=== PATIENT | male | born 1935 | race Caucasian/White ===

== ENCOUNTER 2022-06-15 14:42 | Inpatient (IN) | payer OTHER ==
[~2022-06-15] VITALS: Ht 182.9 cm; Wt 74.8 kg
--- NOTE | 2022-06-15 15:00 | NUR ---
sierra, altered mentation since this morning. On room air, breathing evenly and unlabored. Kept comfortable, will continue to monitor accordingly.
[2022-06-15] MEDS ORDERED: VANCOMYCIN 1 GM in IV D5W 250 ML IV ONE (15:30)
[2022-06-15] MEDS ORDERED: AZTREONAM 2 G in IV NS 0.9% 100 ML IV ONE (15:30)
[2022-06-15] MEDS ORDERED: IV NS 0.9% 1,000 ML BAG IV ONE (15:30)
[2022-06-15] MEDS ORDERED: ACETAMINOPHEN 650 MG/SUPP.RECT RC ONE (15:45)
[2022-06-15] MEDS ORDERED: MIDO10TA PO (15:55)
[2022-06-15] MEDS ORDERED: SENN1TAB77 PO (15:55)
[2022-06-15] MEDS ORDERED: FAMO20TA8 PO (15:55)
[2022-06-15] MEDS ORDERED: POLY17PO4 PO (15:55)
[2022-06-15] MEDS ORDERED: MAG30ORA PO (15:55)
[2022-06-15] MEDS ORDERED: SODI100037 PO (15:55)
[2022-06-15] MEDS ORDERED: FLUD0.1T PO (15:55)
[2022-06-15] MEDS ORDERED: MULT-439 PO (15:55)
[2022-06-15] MEDS ORDERED: FERR143T PO (15:55)
[2022-06-15] MEDS ORDERED: ASCO500C17 PO (15:55)
[2022-06-15] MEDS ORDERED: POTA10CA43 PO (15:55)
[2022-06-15] MEDS ORDERED: DOCU-141 PO (15:55)
[2022-06-15] MEDS ORDERED: LATA2.5D15 EACHEYE (15:55)
[2022-06-15] MEDS ORDERED: PRAM0.253 PO (15:55)
[2022-06-15] MEDS ORDERED: ATOR40TA PO (15:55)
[2022-06-15] MEDS ORDERED: CLOP75TA15 PO (15:55)
[2022-06-15] MEDS ORDERED: SIME125C81 PO (15:55)
[2022-06-15] MEDS ORDERED: LACTASE ENZYME PO (15:55)
[2022-06-15] MEDS ORDERED: L.AC1CAP6 PO (15:55)
[2022-06-15 16:12] LABS: BASOPHILS % (AUTO) 0.3 % (0.0-2.0); HEMATOCRIT 41 % (39-51); HEMOGLOBIN 13.2 g/dL (13.5-17.5); LYMPHOCYTES # (AUTO) 1.4 K/uL (0.8-4.8); LYMPHOCYTES % (AUTO) 11.6 % (20.0-44.0); MEAN CORPUSCULAR HGB CONC 33 g/dl (31.0-36.0); MEAN CORPUSCULAR VOLUME 86 fL (80-96); MONOCYTES # (AUTO) 0.9 K/uL (0.1-1.30); MONOCYTES % (AUTO) 7.7 % (2.0-12.0); NEUTROPHILS # (AUTO) 9.9 K/uL (1.8-8.9); NEUTROPHILS % (AUTO) 80.4 % (43.0-81.0); PLATELET COUNT (AUTO) 249 K/uL (150-450); RED BLOOD CELL COUNT(AUTO) 4.72 MIL/uL (4.5-6.0); WHITE BLOOD COUNT (AUTO) 12.3 K/uL (4.3-11.0)
[2022-06-15 16:30] LABS: BILIRUBIN,URINE SMALL (NEGATIVE); COLOR,URINE YELLOW (YELLOW); LEUKOCYTE ESTERASE ,URINE NEGATIVE (NEGATIVE); NITRITE, URINE POSITIVE (NEGATIVE); PH,URINE 5.5 (5.0-8.0); PROTEIN,URINE 100 mg/dl (NEGATIVE); UGLUCOSE NEGATIVE (NEGATIVE); UROBILINOGEN,URINE 0.2 EU/dL (0.2)
[2022-06-15 16:49] LABS: CALCIUM, SERUM 9.5 mg/dL (8.5-10.1); CARBON DIOXIDE 25 mmol/L (21-32); CHLORIDE 109 mmol/L (98-107); CREATININE 0.8 mg/dL (0.6-1.3); GLUCOSE 143 mg/dL (74-106); SODIUM SERUM 141 mmol/L (136-145); UREA NITROGEN, BLOOD 19 mg/dL (7-18)
[2022-06-15 17:06] LABS: ALANINE AMINOTRANSFERASE 16 U/L (12-78); ALBUMIN 2.6 g/dL (3.4-5.0); ALKALINE PHOSPHATASE 119 U/L (46-116); ASPARTATE AMINOTRANSFERASE 16 U/L (15-37); BILIRUBIN,DIRECT 0.1 mg/dL (0.0-0.2); BILIRUBIN,TOTAL 0.5 mg/dL (0.2-1.0); TOTAL PROTEIN, SERUM 7.8 g/dL (6.4-8.2)
[2022-06-15 17:46] LABS: RBC,URINE 21-50 /HPF (0-2); WBC,URINE 0-2 /HPF (0-3)
[2022-06-15 17:47] LABS: BACTERIA,URINE 2+ /HPF (None Seen); HYALINE CASTS, URINE Few /LPF (None Seen); MUCUS,URINE Many /LPF (None Seen); SQUAMOUS EPITHELIAL CELL,UR 0-2 /HPF (None Seen)
--- NOTE | 2022-06-15 21:07 | NUR ---
CALLED [facility], PAGED KRYSTIAN
--- NOTE | 2022-06-15 21:56 | NUR ---
BED 114-2
--- NOTE | 2022-06-15 22:08 | NUR ---
REPORT GIVEN TO GRETCHEN
--- NOTE | 2022-06-15 23:00 | NUR ---
SHANK SORTERANTENNA DESIGN ENGINEER NOTE PT TRANSPORTED VIA GURNEY TO UNIT AT THIS TIME. PT FROM HOME ADMITTED TO TELE FROM ER UNDER DR TUTTLE FOR ADMITTING DX OF SEPSIS. PT ABLE TO OPEN EYES AND RESPONSIVE TO LIGHT STIMULUS. DAUGHTER AT BEDSIDE. PT ON O2 @ 2LPM VIA NC, TOLERATING WELL. NO SOB OR S/S OF RESPIRATORY DISTRESS. BREATHING EVEN AND UNLABORED. ON EXTERNAL CARBIDE DIE MAKER READING SR. NO SIGNS OF PAIN SUCH FACILA GRIMACING NOTED. NOTED WITH UPPER BACK WOUND, WOUND CONSULT ORDERED. IV ACCESS RAC 20 GAUGE, INTACT AND PATENT. SKY CATH IN PLACE DRAINING ADAM COLORED URINE WITH SEDIMENTATION. ORIENTED TO UNIT, STAFF, AND ROOM. PT BELONGINGS ACCOUNTED FOR AND BELONGINGS LIST SIGNED. SAFETY PRECAUTIONS IN PLACE. BED IN LOWEST LOCKED POSITION, HOB ELEVATED, SIDE RAILS UP X3, AND CALL LIGHT AND TABLE WITHIN REACH. ALL NEEDS MET AT THIS TIME.
--- NOTE | 2022-06-15 23:03 | NUR ---
PT TRANSPORTED TO [id number] ON CARDIAC PER ACLS IN STABLE CONDITION
[2022-06-15] MEDS ORDERED: HYDROCODONE/APAP 5/325MG TABLET PO PRN (23:30)
[2022-06-15] MEDS ORDERED: ONDANSETRON HCL/PF 4 MG/2 ML VIAL IVP PRN (23:30)
[2022-06-15] MEDS ORDERED: MAGNESIUM HYDROXIDE 30 ML UDC PO PRN (23:30)
[2022-06-15] MEDS ORDERED: ACETAMINOPHEN 325 MG TABLET PO PRN (23:30)
[2022-06-15] MEDS ORDERED: MAG HYDROX/AL HYDROX/SIMETH 30 ML UDC PO PRN (23:30)
[2022-06-15] MEDS ORDERED: IV 1/2NS 1000 ML 1,000 ML IV PRN (23:30)
[2022-06-15] MEDS ORDERED: Z GUARD REMEDY 4 OZ OINT TP PRN (23:30)
[2022-06-15 23:53] VITALS: BP 166/70
[2022-06-16] MEDS: ENOXAPARIN SODIUM 40 MG/0.4 ML DISP.SYRIN SQ SCH ×2 (00:16→22:33)
[2022-06-16] MEDS: MIDODRINE HCL (5MG) 5 MG TABLET PO SCH ×6 (01:00→21:00)
--- NOTE | 2022-06-16 02:20 | NUR ---
0220 Called to patient's room by daughter and stated her father is in distress. Assessed patient immediately and noted patient grimacing, unable to verbalize needs and complaints. Per daughter it might be his gall stones. No signs of respiratory distress noted. O2 saturation noted at 98% on 2L NC. Vital signs as follows: BP 159/79, HR 98. Patient kept saying " I don't know I don't know" when asked by his daughter where he's hurting. Dr. Mccartney was notified of patient's complain, awaiting call back.
[2022-06-16 05:00] VITALS: BP 157/72
[2022-06-16] MEDS ORDERED: AZTREONAM 1 G VIAL IM SCH (05:00)
[2022-06-16] MEDS ORDERED: AZTREONAM 1 G VIAL IV SCH (05:00)
[2022-06-16] MEDS ORDERED: AZTREONAM 2 G in IV NS 0.9% 100 ML IV SCH (05:00)
[2022-06-16] MEDS ORDERED: AZTREONAM 1 G VIAL ONE (05:02)
[2022-06-16 06:29] LABS: BASOPHILS % (AUTO) 0.3 % (0.0-2.0); EOSINOPHILS % (AUTO) 0.4 % (0.0-6.0); HEMATOCRIT 32 % (39-51); HEMOGLOBIN 10.9 g/dL (13.5-17.5); LYMPHOCYTES # (AUTO) 1.2 K/uL (0.8-4.8); LYMPHOCYTES % (AUTO) 10.2 % (20.0-44.0); MEAN CORPUSCULAR HGB CONC 34 g/dl (31.0-36.0); MEAN CORPUSCULAR VOLUME 85 fL (80-96); MONOCYTES # (AUTO) 0.8 K/uL (0.1-1.30); MONOCYTES % (AUTO) 7.2 % (2.0-12.0); NEUTROPHILS # (AUTO) 9.4 K/uL (1.8-8.9); NEUTROPHILS % (AUTO) 81.9 % (43.0-81.0); PLATELET COUNT (AUTO) 203 K/uL (150-450); RED BLOOD CELL COUNT(AUTO) 3.79 MIL/uL (4.5-6.0); WHITE BLOOD COUNT (AUTO) 11.5 K/uL (4.3-11.0)
--- NOTE | 2022-06-16 06:46 | NUR ---
VENEER MATCHER CLOSING NOTE PT RESTING IN BED. PT ABLE TO OPEN EYES AND RESPONSIVE TO LIGHT STIMULUS. DAUGHTER AT BEDSIDE. PT ON O2 @ 2LPM VIA NC, TOLERATING WELL. NO SOB OR S/S OF RESPIRATORY DISTRESS. BREATHING EVEN AND UNLABORED. ON EXTERNAL VENDOR MANAGER READING SR WITH PVCS 91 BPM. NO SIGNS OF PAIN SUCH FACILA GRIMACING NOTED. IV ACCESS RAC 20 GAUGE, INTACT AND PATENT. SKY CATH IN PLACE DRAINING ADAM COLORED URINE WITH SEDIMENTATION. ALL DUE MEDS GIVEN ORDERED. TURNED AND REPOSITIONED Q2H. SAFETY PRECAUTIONS IN PLACE AT ALL TIMES. BED IN LOWEST LOCKED POSITION, HOB ELEVATED, SIDE RAILS UP X3, AND CALL LIGHT AND TABLE WITHIN REACH. ALL NEEDS MET AT THIS TIME AND WILL ENDORSE TO ONCOMING NURSE FOR AYLA.
[2022-06-16 06:49] LABS: CALCIUM, SERUM 8.5 mg/dL (8.5-10.1); CARBON DIOXIDE 26 mmol/L (21-32); CHLORIDE 112 mmol/L (98-107); CREATININE 0.6 mg/dL (0.6-1.3); GLUCOSE 104 mg/dL (74-106); MAGNESIUM 2.5 mg/dL (1.8-2.4); PHOSPHORUS 2.6 mg/dL (2.5-4.9); POTASSIUM 3.6 mmol/L (3.5-5.1); SODIUM SERUM 144 mmol/L (136-145); UREA NITROGEN, BLOOD 15 mg/dL (7-18)
--- NOTE | 2022-06-16 08:02 | NUR ---
RN NOTE PT RECEIVED ASLEEP IN BED, RESPONSIVE TO STIMULI. ON O2 VIA NC @2L. PT SKY IN PLACE DRAINING WELL. WITH IV ACCESS ON RAC G20 WITH IVF 1/2 NS @ 75/HR. TOLERATING WELL. PT CONT ON NPO STATUS. SAFETY MEASURES FOLLOWED. DAUGHTER IS AT BEDSIDE. WILL CONT TO MONITOR.
[2022-06-16] MEDS: VANCOMYCIN HCL 0.75 GM in IV D5W 250 ML IV SCH ×2 (08:18→19:16)
[2022-06-16 09:00] VITALS: BP 145/70
[2022-06-16] MEDS: FLUDROCORTISONE 0.1 MG TABLET PO SCH ×2 (09:00→17:00)
[2022-06-16] MEDS: ACIDOPHILUS/BULGARICUS 1 EACH TAB.CHEW PO SCH (09:00)
[2022-06-16] MEDS: POLYETHYLENE GLYCOL 3350 17 GM POWD.PACK PO SCH (09:00)
[2022-06-16] MEDS: MAG HYDROX/AL HYDROX/SIMETH 30 ML UDC PO SCH (09:00)
[2022-06-16] MEDS ORDERED: DOCUSATE SODIUM 100 MG CAPSULE PO SCH (09:00)
[2022-06-16] MEDS ORDERED: Medication Not On Formulary EA (Simethicone 125 MG) PO SCH (09:00)
[2022-06-16] MEDS: ASCORBIC ACID 500 MG TABLET PO SCH (09:00)
[2022-06-16] MEDS ORDERED: SODIUM CHLORIDE 1000 MG TABLET PO SCH (09:00)
[2022-06-16] MEDS: MULTIVIT W/MINERALS 1 TAB TABLET PO SCH (09:00)
[2022-06-16] MEDS: CLOPIDOGREL BISULFATE 75 MG TABLET PO SCH (09:00)
[2022-06-16] MEDS ORDERED: SENNOSIDES/DOCUSATE SODIUM 1 UDTAB TABLET PO SCH (09:00)
[2022-06-16] MEDS: PRAMIPEXOLE DI-HCL 0.25 MG TABLET PO SCH ×3 (09:00→17:00)
--- NOTE | 2022-06-16 09:10 | NUR ---
WOUND CARE CONSULT: PT PRESENTS WITH SCAR TO UPPER BACK WHERE MOLE WAS REMOVED PER FAMILY MEMBER. NO ERYTHEMA, DRAINAGE OR TENDERNESS NOTED. PT IS THIN AND BONY. RECOMMENDATIONS MADE FOR SKIN PROTECTION. DISCUSSED WITH NURSING STAFF. MD IN AGREEMENT WITH PLAN OF CARE.
[2022-06-16] MEDS: PANTOPRAZOLE 40 MG VIAL IV SCH (09:56)
[2022-06-16] MEDS: SENNOSIDES 8.6 MG TABLET PO SCH (10:00)
[2022-06-16] MEDS: DOCUSATE SODIUM 100 MG CAPSULE PO SCH (10:00)
[2022-06-16] MEDS: KETOROLAC TROMETHAMINE INJ 30 MG/ML VIAL IV PRN ×2 (10:22→20:18)
[2022-06-16] MEDS: LEVOFLOXACIN 250 MG /D5W 50 ML 250 MG in PREMIX 1 EA IV SCH (12:19)
[2022-06-16 13:00] VITALS: BP 140/70
[2022-06-16] MEDS ORDERED: IV NS 0.9% 250 ML IV ONE (16:30)
[2022-06-16] MEDS ORDERED: IV LR 1000 ML 1,000 ML IV SCH (16:30)
[2022-06-16] MEDS: CLOTRIMAZOLE 1% 15 GM TUBE TP SCH (16:58)
[2022-06-16] MEDS: BISACODYL SUPP (10 MG) 10 MG/SUPP.RECT SUPP.RECT RC PRN (16:59)
[2022-06-16 17:00] VITALS: BP 127/63
[2022-06-16] MEDS: SIMETHICONE 80 MG TAB.CHEW PO SCH (17:00)
[2022-06-16] MEDS: IV LR 1000 ML 1,000 ML IV PRN (17:57)
--- NOTE | 2022-06-16 18:36 | NUR ---
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 READ BACK VERBAL RESULT TO LEANDRO. WILL FAX OVER OFFICIAL RESULTS AND COVID NEG RESULTS ONCE IN.
--- NOTE | 2022-06-16 18:39 | NUR ---
DR. SOO HOWARD NOTIFIED REGARDING PRELIM VERBAL RESULT. PER SOO HOWARD, NOT A HLOC REASON FOR TRANSFER. WILL FOLLOW UP.
[2022-06-16] MEDS ORDERED: JEVITY 1.2 CAL 1,000 ML BOTTLE GT PRN (19:00)
--- NOTE | 2022-06-16 19:20 | NUR ---
RN NOTE RECEIVED PATIENT IN BED, DAUGHTER AT BEDSIDE, AAO X 2, SPEECH IS UNCLEAR BUT IS MORE RESPONSIVE COMPARED DURING ADMISSION PER DAUGHTER. IN NO ACUTE DISTRESS, BREATHING UNLABORED, SATURATION AT 99% ON 2L VIA NC, SR ON THE MONITOR, HR IS 78. IV LINE AT RAC 20G PATENT AND FLUSHING WELL, NO S/S OF INFECTION OR INFILTRATION WITH LR INFUSING AT 100 ML/HR. SKY CATH DRAINING TO A CLEAR, YELLOW OUTPUT. NPO STATUS MAINTAINED. SAFETY MEASURES IN PLACE, BED IS LOCKED AND AT LOWEST POSITION. CALL LIGHT WITHIN REACH OF PATIENT. WILL CONT TO MONITOR AND REASSESS FOR ANY CHANGES.
--- NOTE | 2022-06-16 19:31 | NUR ---
RN NOTE PT RESTING IN BED, RESPONSIVE TO STIMULI. ON O2 VIA NC @2L. PT SKY IN PLACE DRAINING WELL. WITH IV ACCESS ON RAC G20 WITH IVF LR @ 100/HR. TOLERATING WELL. PT CONT ON NPO STATUS. SAFETY MEASURES FOLLOWED.DUE MEDICATIONS GIVEN. DAUGHTER IS AT BEDSIDE. AM PM CARE RENDERED.
[2022-06-16 19:39] LABS: ABG BASE EXCESS -0.6 mmol/L; ABG OXYGEN SATURATION 97.3 % (92.0-98.5); ABG PH 7.406 (7.350-7.450); ABG PO2 98.3 mmHg (75.0-100.0); AaDO2 84.2 mmHg; COHb 0.3 % (0.5-1.5); MetHb 0.2 % (0.0-1.5); O2Hb 96.8 % (94.0-97.0); SITE, ABG Right Radial; VENT MODE, BG Nasal Cannula
--- NOTE | 2022-06-16 19:54 | NUR ---
RN NOTES Spoke to Kika and faxed ultrasound result to her. Tere, warehouse assembly worker aware and will follow up with CM about HLOC. Vikas, primary RN aware.
[2022-06-16 20:00] VITALS: BP 124/61
--- NOTE | 2022-06-16 20:30 | NUR ---
RN NOTES family at bedside; discussed about visiting policy. Per incinerator plant supervisor dtr was allowed to stay last night but was told only for 1 night. Daughter asked for a little bit of time bec she is discussing with the sister about getting a transportation for patient to be transferred to another hospital. Business Practices Supervisor and security made aware 2100 one dtr is left and adamant to stay overnight. Refused NGT to be inserted to the patient unless she talks to incinerator plant supervisor and stay overnight. Business Practices Supervisor will come and talk to her Addendum: 06/16/22 at 2213 by BRAD RAMOS RN 2209 follow up call made to Kika CAMPUZANO; she is still waiting a call back from their doctor and Dr. Mccartney, CHRISTY communications consultant. Will follow up and call me. Yao, warehouse associate aware and she relayed the message to the daughter Addendum: 06/16/22 at 2311 by BRAD RAMOS RN 2239 TATIANNA Anand called back. Per Orlando Miles MD,Dr. Peters, Dr. Mccartney is not aware of [facility] transfer and will consult a vascular surgeon regarding result. Also MD looked at the previous imaging done in [place] for comparison. there is no increase in size therefore, it is not an urgent case for transfer to [facility] and also there is no cardio thoracic surgeon on board. Kika will pass it on to daytime CM and will follow up with the dtrLisa in the morning. Yao , warehouse associate and Vikas, primary RN aware. Spoke to , daughter at bedside and relayed above conversation that I had with their insurance Kika CAMPUZANO.
--- NOTE | 2022-06-16 20:35 | NUR ---
RN NOTE PER PATIENT'S DAUGHTER, HOLD OFF ON NG INSERTION FOR NOW AWAITING POSSIBLE TRANSFER TO [facility]. PATIENT KEPT NPO. UNABLE TO ADMINISTER PO MEDS PATIENT IS LETHARGIC AND FAILED SWALLOW EVALUATION. PO MEDS NON ADMINISTERED.
[2022-06-16] MEDS: LATANOPROST EYE DROP 0.005% 2.5 ML BOTTLE EACHEYE SCH (22:00)
[2022-06-16] MEDS: ATORVASTATIN 40 MG TABLET PO SCH (22:00)
--- NOTE | 2022-06-16 23:27 | NUR ---
RN NOTE ATTEMPTED TO INSERT NASOGASTRIC TUBE PER MD ORDER, HOWEVER, RESISTANCE NOTED ON BOTH NARES. PER PATIENT'S DAUGHTER SABINA, THIS HAS BEEN A PROBLEM IN THE PAST PATIENT HAD A PRIOR NASAL INJURY. SHE REQUESTED IF DOBHOFF TUBE MAYBE USED, HOWEVER, CAN ONLY BE INSERTED BY MD. ASKED IF SHE CAN WAIT TIL AM, SHE IS AMENABLE.
[2022-06-17] VITALS: BP 141/54
[2022-06-17] MEDS ORDERED: KETOROLAC TROMETHAMINE INJ 30 MG/ML VIAL IM ONE (01:00)
[2022-06-17] MEDS: MIDODRINE HCL (5MG) 5 MG TABLET PO SCH ×6 (01:00→20:31)
[2022-06-17] MEDS ORDERED: KETOROLAC TROMETHAMINE INJ 30 MG/ML VIAL IV PRN (01:00)
[2022-06-17 04:00] VITALS: BP 145/61
[2022-06-17] MEDS: IV LR 1000 ML 1,000 ML IV PRN ×2 (04:20→21:07)
--- NOTE | 2022-06-17 04:36 | NUR ---
RN NOTE PT'S DAUGHTER STATED SHE THINKS PT MAYBE IN PAIN HE IS RESTLESS AND DOING BUE AND BLE MOVEMENTS. HOWEVER, TORADOL PRN NOT DUE YET. DR BOLAND WAS NOTIFIED, ORDERS RECEIVED TO DISCONTINUE TORADOL AND START MORPHINE 2 MG Q6 PRN. NOTED CODEINE LISTED UNDER PT'S ALLERGIES, PT'S DAUGHTER SAID PT ONLY HAD DIZZINESS AFTER RECEIVING CODEINE IN THE PAST, NO ANAPHYLACTIC REACTION NOTED. ALSO PT TOLERATED DILAUDID. DR BOLAND WAS MADE AWARE, SHE SAID OK TO GIVE MORPHINE.
[2022-06-17] MEDS: VANCOMYCIN HCL 0.75 GM in IV D5W 250 ML IV SCH (06:18)
[2022-06-17] MEDS: MORPHINE SULFATE INJ 2 MG/ML DISP.SYRIN IV PRN ×3 (06:19→21:07)
[2022-06-17 06:44] LABS: BASOPHILS % (AUTO) 0.3 % (0.0-2.0); HEMATOCRIT 29 % (39-51); HEMOGLOBIN 9.7 g/dL (13.5-17.5); LYMPHOCYTES # (AUTO) 0.9 K/uL (0.8-4.8); LYMPHOCYTES % (AUTO) 12.4 % (20.0-44.0); MEAN CORPUSCULAR HGB CONC 33 g/dl (31.0-36.0); MEAN CORPUSCULAR VOLUME 87 fL (80-96); MONOCYTES # (AUTO) 0.7 K/uL (0.1-1.30); NEUTROPHILS # (AUTO) 5.7 K/uL (1.8-8.9); NEUTROPHILS % (AUTO) 77.3 % (43.0-81.0); PLATELET COUNT (AUTO) 195 K/uL (150-450); RED BLOOD CELL COUNT(AUTO) 3.34 MIL/uL (4.5-6.0); WHITE BLOOD COUNT (AUTO) 7.4 K/uL (4.3-11.0)
--- NOTE | 2022-06-17 07:13 | NUR ---
RN NOTE PT ASLEEP, VS STABLE, NPO STATUS MAINTAINED PENDING SWALLOW EVALUATION AND NG TUBE INSERTION WITH DOBHOFF TUBE PER DTR PATIENT HAS HX OF NASAL INJURY. PT ALSO REQUESTING FLEET ENEMA PT C/O ABDOMINAL PAIN AND THINKS MAYBE FROM CONSTIPATION. (PT HAD BM X 1). ENDORSED TO MERY MEDINA FOR CONTINUATION OF CARE
--- NOTE | 2022-06-17 07:30 | NUR ---
RN OPENING NOTE PT RECEIVED ASLEEP IN BED, RESPONSIVE TO STIMULI. SATTING AT 100% ON 2L NC. PATIENT VOIDING VIA SKY CATHETER PATENT AND DRAINING BELOW THE BLADDER. IV RAC #20G PATENT AND INTACT RUNNING NS 0.9% @75 MLS/HR . DIET CONT ON NPO STATUS NG TUBE WAS ATTEMPTED TO BE INSERTED SEVERAL TIME AND WAS FAILED DUE TO PAST NOSE INJURY. ALL SAFETY FALL PRECAUTIONS IN PLACE BED LOCK ON, BED ALARM ON, SIDE RAILS UP, CALL LIGHT WITHIN REACH. DAUGHTER AT BEDSIDE. WILL CONTINUE TO MONITOR.
[2022-06-17 07:35] LABS: CALCIUM, SERUM 8.6 mg/dL (8.5-10.1); MAGNESIUM 2.5 mg/dL (1.8-2.4); PHOSPHORUS 2.8 mg/dL (2.5-4.9); POTASSIUM 3.4 mmol/L (3.5-5.1)
[2022-06-17 07:47] LABS: CREATININE 0.6 mg/dL (0.6-1.3)
[2022-06-17 08:00] VITALS: BP 127/62
[2022-06-17] MEDS: MAG HYDROX/AL HYDROX/SIMETH 30 ML UDC PO SCH (09:00)
[2022-06-17] MEDS: ASCORBIC ACID 500 MG TABLET PO SCH (09:00)
[2022-06-17] MEDS: PRAMIPEXOLE DI-HCL 0.25 MG TABLET PO SCH ×3 (09:00→17:00)
[2022-06-17] MEDS: SIMETHICONE 80 MG TAB.CHEW PO SCH ×2 (09:00→17:00)
[2022-06-17] MEDS: CLOPIDOGREL BISULFATE 75 MG TABLET PO SCH (09:00)
[2022-06-17] MEDS: FLUDROCORTISONE 0.1 MG TABLET PO SCH ×2 (09:00→17:00)
[2022-06-17] MEDS: FERROUS SULFATE (325 MG) 325 MG/TAB TABLET PO SCH (09:00)
[2022-06-17] MEDS: ACIDOPHILUS/BULGARICUS 1 EACH TAB.CHEW PO SCH (09:00)
[2022-06-17] MEDS: MULTIVIT W/MINERALS 1 TAB TABLET PO SCH (09:00)
[2022-06-17] MEDS: SENNOSIDES 8.6 MG TABLET PO SCH (09:00)
[2022-06-17] MEDS: DOCUSATE SODIUM 100 MG CAPSULE PO SCH (09:00)
[2022-06-17] MEDS: POLYETHYLENE GLYCOL 3350 17 GM POWD.PACK PO SCH (09:00)
[2022-06-17] MEDS: PANTOPRAZOLE 40 MG VIAL IV SCH (09:04)
[2022-06-17] MEDS: CLOTRIMAZOLE 1% 15 GM TUBE TP SCH ×2 (09:09→17:21)
--- NOTE | 2022-06-17 09:36 | NUR ---
RN NOTE PATIENT'S DAUGHTER (SABINA) WAS EDUCATED ABOUT DNR AND DNI. THE DAUGHTER WAS ASKED TO CLARIFY THE CODE STATUS OF HER FATHER. SHE WOULD LIKE TO KEEP HER FATHER'S CURRENT CODE STATUS OF DNR ONLY.
[2022-06-17 12:00] VITALS: BP 149/62
[2022-06-17] MEDS ORDERED: GUAIFENESIN 300 MG/15 ML UDC PO PRN (12:00)
[2022-06-17] MEDS: LEVOFLOXACIN 250 MG /D5W 50 ML 250 MG in PREMIX 1 EA IV SCH (12:34)
[2022-06-17] MEDS: POTASSIUM CL. PREMIX PERIPHER. 50 ML IV SCH ×2 (12:44→15:04)
[2022-06-17] MEDS ORDERED: PNEUMOCOCCAL 23-VAL P-SAC VAC 0.5 ML VIAL SQ ONE (13:00)
--- NOTE | 2022-06-17 14:30 | NUR ---
ms rn patient complain of right lower leg pain 07/24, morphine 2mg iv given, will reevaluate later for effectiveness.
[2022-06-17] MEDS: NA PHOS,M-B/NA PHOS,DI-BA 1 EA ENEMA RC PRN ×2 (15:18→18:21)
[2022-06-17 16:00] VITALS: BP 166/82
--- NOTE | 2022-06-17 19:12 | NUR ---
RN NOTE ALL CARE ENDORSED TO NATIONAL FACILITIES MANAGER NURSE. PATIENT STABLE ALL QUESTIONS ANSWERED.
--- NOTE | 2022-06-17 19:39 | NUR ---
RN OPENING NOTES RECEIVED PT IN BED, ASLEEP, AWAKENS TO VERBAL STIMULI WITH DAUGHTER AND BEDSIDE. AOx2-3, ABLE TO MAKE NEEDS KNOWN. ON RA AND TOLERATING WELL. NO SOB NOTED. NO S/SX OF RESPIRATORY DISTRESS NOTED. IV ACCESS IN RAC #20G AND LAC #20G RUNNING LR @100 ML/HR. SAFETY PRECAUTIONS IN PLACE: BED IN LOWEST, LOCKED POSITION, SIDERAILS UPx2, AND BRAKES ON. TABLE AND CALL LIGHT WITHIN REACH. NO CONCERNS AT THIS TIME. WILL CONTINUE TO MONITOR.
[2022-06-17 20:00] VITALS: BP 171/80
[2022-06-17] MEDS: VANCOMYCIN 500 MG in IV D5W 100ml IV SCH (21:07)
--- NOTE | 2022-06-17 21:07 | NUR ---
RN NOTES ADMINISTERED MORPHINE FOR PAIN PER MD ORDER AND FOR HYPERTENSION OF 171/61. WILL CONTINUE TO MONITOR.
[2022-06-17] MEDS: LATANOPROST EYE DROP 0.005% 2.5 ML BOTTLE EACHEYE SCH (21:08)
[2022-06-17] MEDS: ENOXAPARIN SODIUM 40 MG/0.4 ML DISP.SYRIN SQ SCH (21:09)
[2022-06-17] MEDS: ATORVASTATIN 40 MG TABLET PO SCH (21:34)
[2022-06-18] MEDS: MIDODRINE HCL (5MG) 5 MG TABLET PO SCH ×6 (00:58→21:08)
[2022-06-18 04:00] VITALS: BP 159/71
--- NOTE | 2022-06-18 07:08 | NUR ---
RN CLOSING NOTES PT IN NO DISTRESS. ALL ORDERS CARRIED OUT. WILL REPORT TO DAYSHIFT RN FOR AYLA.
--- NOTE | 2022-06-18 07:30 | NUR ---
MS RN OPENING NOTES RECEIVED PATIENT ON BED AWAKE AND A/O X3 WITH DAUGHTER AT BEDSIDE. ON O2 AT 2LPM VIA NASAL CANNULA TOLERATING WELL. NO SOB NOTED. NOT IN DISTRESS. WITH NO COMPLAINTS OF PAIN OR DISCOMFORT AT THIS TIME. WITH NO IV ACCESS. PER TOY DEPARTMENT MANAGER RN THEY TRIED TO INSERT IV MULTIPLE TIMES. PATIENT IS HARD STICK. AWAITING FOR MIDLINE INSERTION. SAFETY MEASURES IN PLACED. CALL LIGHT WITHIN REACH. BED ON LOWEST LOCKED POSITION, SIDE RAILS UP X2. WILL CONTINUE TO MONITOR.
[2022-06-18 09:00] LABS: BASOPHILS % (AUTO) 0.2 % (0.0-2.0); EOSINOPHILS % (AUTO) 0.6 % (0.0-6.0); HEMATOCRIT 28 % (39-51); HEMOGLOBIN 9.5 g/dL (13.5-17.5); LYMPHOCYTES # (AUTO) 0.9 K/uL (0.8-4.8); LYMPHOCYTES % (AUTO) 17.5 % (20.0-44.0); MEAN CORPUSCULAR HGB CONC 34 g/dl (31.0-36.0); MEAN CORPUSCULAR VOLUME 86 fL (80-96); MONOCYTES # (AUTO) 0.4 K/uL (0.1-1.30); MONOCYTES % (AUTO) 7.2 % (2.0-12.0); NEUTROPHILS # (AUTO) 3.8 K/uL (1.8-8.9); NEUTROPHILS % (AUTO) 74.5 % (43.0-81.0); PLATELET COUNT (AUTO) 194 K/uL (150-450); RED BLOOD CELL COUNT(AUTO) 3.22 MIL/uL (4.5-6.0)
[2022-06-18] MEDS: MULTIVIT W/MINERALS 1 TAB TABLET PO SCH (09:00)
[2022-06-18] MEDS: ASCORBIC ACID 500 MG TABLET PO SCH (09:00)
[2022-06-18] MEDS: SIMETHICONE 80 MG TAB.CHEW PO SCH ×2 (09:00→17:49)
[2022-06-18] MEDS: MAG HYDROX/AL HYDROX/SIMETH 30 ML UDC PO SCH (09:00)
[2022-06-18] MEDS: SENNOSIDES 8.6 MG TABLET PO SCH (09:00)
[2022-06-18] MEDS: DOCUSATE SODIUM 100 MG CAPSULE PO SCH (09:00)
[2022-06-18] MEDS: ACIDOPHILUS/BULGARICUS 1 EACH TAB.CHEW PO SCH (09:00)
[2022-06-18] MEDS: FLUDROCORTISONE 0.1 MG TABLET PO SCH ×2 (09:00→17:00)
[2022-06-18] MEDS: POLYETHYLENE GLYCOL 3350 17 GM POWD.PACK PO SCH (09:00)
[2022-06-18] MEDS: FERROUS SULFATE (325 MG) 325 MG/TAB TABLET PO SCH (09:00)
[2022-06-18] MEDS: CLOPIDOGREL BISULFATE 75 MG TABLET PO SCH (09:00)
[2022-06-18] MEDS: PRAMIPEXOLE DI-HCL 0.25 MG TABLET PO SCH ×3 (09:00→17:49)
[2022-06-18 09:04] LABS: CALCIUM, SERUM 8.5 mg/dL (8.5-10.1); CREATININE 0.6 mg/dL (0.6-1.3); MAGNESIUM 2.2 mg/dL (1.8-2.4); PHOSPHORUS 3.6 mg/dL (2.5-4.9)
[2022-06-18 09:06] LABS: POTASSIUM 2.6 mmol/L (3.5-5.1)
--- NOTE | 2022-06-18 09:45 | NUR ---
RN NOTE INSERTED IV LINE AT THE LEFT FOREARM G24 PATENT AND INTACT. TO GIVE IV MEDICATIONS.
[2022-06-18] MEDS: VANCOMYCIN 500 MG in IV D5W 100ml IV SCH ×2 (10:00→21:08)
[2022-06-18] MEDS: PANTOPRAZOLE 40 MG VIAL IV SCH (10:01)
[2022-06-18] MEDS: CLOTRIMAZOLE 1% 15 GM TUBE TP SCH ×2 (10:22→17:50)
[2022-06-18] MEDS: LEVOFLOXACIN 250 MG /D5W 50 ML 250 MG in PREMIX 1 EA IV SCH (12:11)
[2022-06-18] MEDS: POTASSIUM CL. PREMIX PERIPHER. 50 ML IV SCH ×4 (13:13→21:08)
[2022-06-18] MEDS: MORPHINE SULFATE INJ 2 MG/ML DISP.SYRIN IV PRN (13:38)
[2022-06-18] MEDS: IV LR 1000 ML 1,000 ML IV PRN (13:41)
--- NOTE | 2022-06-18 13:49 | NUR ---
MS RN NOTE PATIENT PASS BESIDE NURSING SWALLOW VARSHA, . PER MARKO MEDINA MANAGER PRODUCT MARKETING OK TO START ORAL GRATIFICATION AND DYSPHAGIA DIET, ON ASPIRATION PRECAUTION
--- NOTE | 2022-06-18 13:50 | NUR ---
ms rn note nursing bedside swallow eval done by elizabeth MEDINA , able to swallow applesauce, Pro horne rn automatic washer mechanic notified
--- NOTE | 2022-06-18 15:52 | NUR ---
RN NOTE CALLED RADIOLOGY AND SPOKE TO SPRING REGARDING CT ABDOMEN AND PELVIS WITHOUT CONTRAST AND REPORTED TO DO THE PROCEDURE TOMORROW IN AM.
--- NOTE | 2022-06-18 18:26 | NUR ---
MS RN CLOSING NOTES PATIENT ON BED AWAKE AND A/O X3 WITH DAUGHTER AT BEDSIDE. ON O2 AT 2LPM VIA NASAL CANNULA TOLERATING WELL. NO SOB NOTED. NOT IN DISTRESS. WITH NO COMPLAINTS OF PAIN OR DISCOMFORT AT THIS TIME. WITH IV ACCESS AT THE RIGHT FOREARM G24 WITH LR AT 100ML/HR INFUSING WELL. AWAITING FOR MIDLINE INSERTION. DUE MEDS GIVEN. SAFETY MEASURES IN PLACED. CALL LIGHT WITHIN REACH. BED ON LOWEST LOCKED POSITION, SIDE RAILS UP X2. WILL ENDORSE TO NEXT SHIFT FOR AYLA.
[2022-06-18 20:00] VITALS: BP 102/54
[2022-06-18] MEDS: ATORVASTATIN 40 MG TABLET PO SCH (21:08)
[2022-06-18] MEDS: ENOXAPARIN SODIUM 40 MG/0.4 ML DISP.SYRIN SQ SCH (21:10)
[2022-06-18] MEDS: BISACODYL SUPP (10 MG) 10 MG/SUPP.RECT SUPP.RECT RC PRN (21:17)
[2022-06-18] MEDS: LATANOPROST EYE DROP 0.005% 2.5 ML BOTTLE EACHEYE SCH (21:48)
--- NOTE | 2022-06-18 22:38 | NUR ---
MS RN OPENING NOTE PT RECEIVED IN BED, ASLEEP, BUT EASILY AROUSABLE. A&O X2-3. PT NOTED TO BE ON 2L NC WITH CURRENT [id number] 100%; NO S/S OF RESP DISTRESS, NO SOB OR COUGH, NON-LABORED AND EQUAL BREATHING; APPEARS COMFORTABLE OVERALL. VSS, WILL CONTINUE TO MONITOR NEEDED. SKY INTACT AND PATENT, DRAINING CLEAR AND YELLOW URINE. DARIAN MIDLINE AND RFA 24G INTACT AND PATENT, FLUSHES EASILY WITH NO RESISTANCE, HAS LR RUNNING AT 100 ML/HR. PT'S DAUGHTERS AT BEDSIDE AND DISCUSSED WITH THEM PT'S CODE STATUS. PER DAUGHTER, SHE WILL SPEAK TO PT'S SISTER TO DISCUSS FURTHER ABOUT CODE STATUS, BUT FOR NOW DAUGHTER STATED SHE DOES NOT WANT CPR TO BE PERFORMED, BUT WANTS PT TO BE INTUBATED. WILL AWAIT FINAL CODE STATUS. BED IN LOWEST POSITION, CALL LIGHT WITHIN REACH, SIDE RAILS UP X3. WILL CONTINUE TO MONITOR THROUGHOUT THE NIGHT.
[2022-06-18] MEDS: ZOLPIDEM TARTRATE 5 MG TABLET PO PRN (22:44)
--- NOTE | 2022-06-18 22:45 | NUR ---
RN NOTE PT'S DAUGHTER REQUESTS FOR SLEEPING MEDICATION FOR HIS FATHER. PT ADMINISTERED ZOLPIDEM 5 MG. WILL MONITOR FOR EFFECTIVENESS.
[2022-06-19] MEDS: MIDODRINE HCL (5MG) 5 MG TABLET PO SCH ×6 (01:00→20:54)
--- NOTE | 2022-06-19 01:27 | NUR ---
RN NOTE MIDODRINE SCHEDULED FOR 99 HELD D/T BP OF 165/57.
[2022-06-19 04:00] VITALS: BP 144/51
[2022-06-19] MEDS: IV LR 1000 ML 1,000 ML IV PRN ×2 (04:29→16:05)
--- NOTE | 2022-06-19 05:02 | NUR ---
RN NOTE MIDODRINE SCHEDULED FOR 0500 HELD. BP 144/51.
--- NOTE | 2022-06-19 06:43 | NUR ---
MS RN CLOSING NOTE PT REMAINS IN BED, ASLEEP, BUT EASILY AROUSABLE. A&O X2-3; DAUGHTER REMAINS AT BEDSIDE. PT REMAINS ON 2L NC WITH O2SAT RANGING FROM 99%- 100%; NO S/S OF RESP DISTRESS, NO SOB OR COUGH, NON-LABORED AND EQUAL BREATHING. VSS DURING THE NIGHT WITH NO SIGNIFICANT CHANGES. SKY INTACT AND PATENT, DRAINING CLEAR AND YELLOW URINE; NO SIGNS OF LEAKING. DARIAN MIDLINE AND RFA 24G INTACT AND PATENT, FLUSHES EASILY WITH NO RESISTANCE, LR RUNNING AT 100 ML/HR. ALL DUE MEDS ADMINISTERED DURING THE NIGHT. BED IN LOWEST POSITION, CALL LIGHT WITHIN REACH, SIDE RAILS UP X3. WILL ENDORSE TO DAYSHIFT NURSE TO CONTINUE CARE.
[2022-06-19 06:55] LABS: BASOPHILS % (AUTO) 0.3 % (0.0-2.0); EOSINOPHILS % (AUTO) 1.1 % (0.0-6.0); HEMATOCRIT 27 % (39-51); LYMPHOCYTES % (AUTO) 21.3 % (20.0-44.0); MEAN CORPUSCULAR HGB CONC 34 g/dl (31.0-36.0); MEAN CORPUSCULAR VOLUME 86 fL (80-96); MONOCYTES # (AUTO) 0.4 K/uL (0.1-1.30); MONOCYTES % (AUTO) 7.8 % (2.0-12.0); NEUTROPHILS # (AUTO) 3.4 K/uL (1.8-8.9); NEUTROPHILS % (AUTO) 69.5 % (43.0-81.0); PLATELET COUNT (AUTO) 205 K/uL (150-450); WHITE BLOOD COUNT (AUTO) 4.9 K/uL (4.3-11.0)
[2022-06-19 07:29] LABS: CALCIUM, SERUM 8.5 mg/dL (8.5-10.1); CREATININE 0.6 mg/dL (0.6-1.3); MAGNESIUM 2.2 mg/dL (1.8-2.4); PHOSPHORUS 2.7 mg/dL (2.5-4.9); POTASSIUM 3.2 mmol/L (3.5-5.1)
--- NOTE | 2022-06-19 08:00 | NUR ---
RN OPENING NOTE PT RECEIVED IN BED, ASLEEP, BUT EASILY AROUSABLE. A&O X2-3. PT NOTED TO BE ON 2L NC WITH CURRENT O2 SAT OF 100%; NO S/S OF RESP DISTRESS, NO SOB OR COUGH, NON-LABORED AND EQUAL BREATHING; APPEARS COMFORTABLE OVERALL. VSS, WILL CONTINUE TO MONITOR NEEDED. SKY INTACT AND PATENT, DRAINING CLEAR AND YELLOW URINE. DARIAN MIDLINE AND RFA 24G INTACT AND PATENT, FLUSHES EASILY WITH NO RESISTANCE, HAS LR RUNNING AT 100 ML/HR. PT'S DAUGHTERS AT BEDSIDE. BED IN LOWEST POSITION, CALL LIGHT WITHIN REACH, SIDE RAILS UP X3. WILL CONTINUE TO MONITOR THROUGHOUT THE DAY SHIFT.
[2022-06-19] MEDS: ACIDOPHILUS/BULGARICUS 1 EACH TAB.CHEW PO SCH (08:39)
[2022-06-19] MEDS: PRAMIPEXOLE DI-HCL 0.25 MG TABLET PO SCH ×3 (08:40→16:29)
[2022-06-19] MEDS: SIMETHICONE 80 MG TAB.CHEW PO SCH ×2 (08:40→16:28)
[2022-06-19] MEDS: SENNOSIDES 8.6 MG TABLET PO SCH (08:41)
[2022-06-19] MEDS: CLOPIDOGREL BISULFATE 75 MG TABLET PO SCH (08:41)
[2022-06-19] MEDS: DOCUSATE SODIUM 100 MG CAPSULE PO SCH (08:41)
[2022-06-19] MEDS: FERROUS SULFATE (325 MG) 325 MG/TAB TABLET PO SCH (08:41)
[2022-06-19] MEDS: FLUDROCORTISONE 0.1 MG TABLET PO SCH ×2 (08:41→17:00)
[2022-06-19] MEDS: MULTIVIT W/MINERALS 1 TAB TABLET PO SCH (08:41)
[2022-06-19] MEDS: ASCORBIC ACID 500 MG TABLET PO SCH (08:41)
[2022-06-19] MEDS: POLYETHYLENE GLYCOL 3350 17 GM POWD.PACK PO SCH (08:42)
[2022-06-19] MEDS: PANTOPRAZOLE 40 MG VIAL IV SCH (08:42)
[2022-06-19] MEDS: CLOTRIMAZOLE 1% 15 GM TUBE TP SCH ×2 (08:45→16:35)
[2022-06-19] MEDS: MAG HYDROX/AL HYDROX/SIMETH 30 ML UDC PO SCH (09:25)
[2022-06-19] MEDS: VANCOMYCIN 500 MG in IV D5W 100ml IV SCH (09:59)
[2022-06-19] MEDS ORDERED: POTASSIUM CHLORIDE 20 MEQ POWDER PACKET PO SCH (10:00)
[2022-06-19] MEDS: LEVOFLOXACIN 250 MG /D5W 50 ML 250 MG in PREMIX 1 EA IV SCH (15:54)
[2022-06-19 16:00] VITALS: BP 159/49
[2022-06-19] MEDS: ENSURE ENLIVE 237 ML LIQUID (VANILLA) PO SCH (16:30)
--- NOTE | 2022-06-19 18:35 | NUR ---
RN CLOSING NOTE PT REMAINS IN BED, ASLEEP, BUT EASILY AROUSABLE. A&O X2-3; DAUGHTER REMAINS AT BEDSIDE. PT REMAINS ON 2L NC WITH O2SAT RANGING FROM 99%- 100%; NO S/S OF RESP DISTRESS, NO SOB OR COUGH, NON-LABORED AND EQUAL BREATHING. VSS DURING THE NIGHT WITH NO SIGNIFICANT CHANGES. SKY WAS REMOVED AT 1700 PER ABDIEL COBB, PATIENT IS ON DIPER NOW. DARK AMBEER URINE DUE TO UTI, PATIENT REMAINS ON ANTIBIOTICS; MECHANICAL SOFT DIET, DARIAN MIDLINE AND RFA 24G INTACT AND PATENT, FLUSHES EASILY WITH NO RESISTANCE, LR RUNNING AT 100 ML/HR. PATIENT AND HIS DAUGHTER REFUSED TO TAKE FLORINED AND MIDODRINE DUE TO BP 159/49. BED IN LOWEST POSITION, CALL LIGHT WITHIN REACH, SIDE RAILS UP X3. WILL ENDORSE TO CLERK CHECKER NURSE TO CONTINUE CARE.
[2022-06-19 20:00] VITALS: BP 147/63
[2022-06-19] MEDS: ENOXAPARIN SODIUM 40 MG/0.4 ML DISP.SYRIN SQ SCH (20:18)
--- NOTE | 2022-06-19 20:25 | NUR ---
PATIENT IN BED ASLEEP, AROUSES TO VERBAL STIMULI, VERBALLY RESPONSIVE, MOM GIVEN PER DAUGHTER REQUEST, PT PASSING GASES BUT UNABLE TO HAVE BM, PATIENT AT 2LPM VIA NC, NO DISTRESS/SOB NOTED, IVF LR INFUSING WELL AND PATENT TOLERATED WELL, DARIAN MIDLINE PATENT AND INTACT, DAUGHTER AT BEDSIDE, ALL SAFETY PRECAUTIONS MAINTAINED, WILL CONTINUE TO MONITOR CLOSELY.
[2022-06-19] MEDS: ATORVASTATIN 40 MG TABLET PO SCH (21:47)
[2022-06-19] MEDS: LATANOPROST EYE DROP 0.005% 2.5 ML BOTTLE EACHEYE SCH (21:48)
[2022-06-19] MEDS: ZOLPIDEM TARTRATE 5 MG TABLET PO PRN (23:23)
[2022-06-20] MEDS: MIDODRINE HCL (5MG) 5 MG TABLET PO SCH ×2 (01:00→05:00)
[2022-06-20] MEDS: IV LR 1000 ML 1,000 ML IV PRN (03:08)
[2022-06-20 04:00] VITALS: BP 155/69
--- NOTE | 2022-06-20 06:39 | NUR ---
RN CLOSING NOTES, PATIENT IN BED ASLEEP, AROUSES TO VERBAL STIMULI, VERBALLY RESPONSIVE, AT 2LPM VIA NC, NO DISTRESS/SOB NOTED WITH OPTIMAL O2 SAT LEVEL, IVF LR INFUSING WELL AND PATENT TOLERATED WELL, DARIAN MIDLINE PATENT AND INTACT, DAUGHTER AT BEDSIDE, OTHERWISE NO SIGNIFICANT CHANGE IN CONDITION DURING THE NIGHT, VITAL SIGNS STABLE, NO NEED FOR MIDODRINE DURING THE NIGHT, ALL SAFETY PRECAUTIONS MAINTAINED, WILL ENDORSE CONTINUITY OF CARE TO ONCOMING NURSE.
[2022-06-20 06:49] LABS: BASOPHILS % (AUTO) 0.3 % (0.0-2.0); EOSINOPHILS % (AUTO) 0.8 % (0.0-6.0); HEMATOCRIT 28 % (39-51); HEMOGLOBIN 9.3 g/dL (13.5-17.5); LYMPHOCYTES # (AUTO) 1.1 K/uL (0.8-4.8); LYMPHOCYTES % (AUTO) 20.8 % (20.0-44.0); MEAN CORPUSCULAR HGB CONC 34 g/dl (31.0-36.0); MEAN CORPUSCULAR VOLUME 85 fL (80-96); MONOCYTES # (AUTO) 0.5 K/uL (0.1-1.30); MONOCYTES % (AUTO) 9.6 % (2.0-12.0); NEUTROPHILS # (AUTO) 3.7 K/uL (1.8-8.9); NEUTROPHILS % (AUTO) 68.5 % (43.0-81.0); PLATELET COUNT (AUTO) 212 K/uL (150-450); RED BLOOD CELL COUNT(AUTO) 3.27 MIL/uL (4.5-6.0); WHITE BLOOD COUNT (AUTO) 5.4 K/uL (4.3-11.0)
[2022-06-20 06:58] LABS: CALCIUM, SERUM 8.2 mg/dL (8.5-10.1); CARBON DIOXIDE 33 mmol/L (21-32); CHLORIDE 108 mmol/L (98-107); CREATININE 0.6 mg/dL (0.6-1.3); GLUCOSE 143 mg/dL (74-106); MAGNESIUM 1.9 mg/dL (1.8-2.4); PHOSPHORUS 1.8 mg/dL (2.5-4.9); SODIUM SERUM 147 mmol/L (136-145); UREA NITROGEN, BLOOD 5 mg/dL (7-18)
[2022-06-20 07:32] LABS: POTASSIUM 2.8 mmol/L (3.5-5.1)
--- NOTE | 2022-06-20 07:34 | NUR ---
RN OPENING NOTE PT RECEIVED IN BED, ASLEEP, BUT EASILY AROUSABLE. A&O X2-3. PT NOTED TO BE ON 2L NC WITH CURRENT O2 SAT OF 100%; NO S/S OF RESP DISTRESS, NO SOB OR COUGH, NON-LABORED AND EQUAL BREATHING; APPEARS COMFORTABLE OVERALL. . SKY INTACT AND PATENT, DRAINING CLEAR AND YELLOW URINE. DARIAN MIDLINE AND RFA 24G INTACT AND PATENT, FLUSHES EASILY WITH NO RESISTANCE, HAS LR RUNNING AT 100 ML/HR. PT'S DAUGHTERS AT BEDSIDE. BED IN LOWEST POSITION, CALL LIGHT WITHIN REACH, SIDE RAILS UP X3.
--- NOTE | 2022-06-20 07:45 | NUR ---
RN NOTE RECEIVED CRITICAL LAB POTASSIUM 2.8 WILL INFOMR PROVIDER ONCE PROVIDER LIST IS MADE AVAILABLE
[2022-06-20] MEDS: ENSURE ENLIVE 237 ML LIQUID (VANILLA) PO SCH ×3 (08:00→17:00)
[2022-06-20 08:02] VITALS: BP 148/72
--- NOTE | 2022-06-20 08:20 | NUR ---
RN NOTE INFORMED DR HE OF POTASSIUM LEVEL PENDING ORDER
[2022-06-20] MEDS ORDERED: POTASSIUM CHLORIDE 20 MEQ TAB.PRT.SR PO SCH (08:30)
[2022-06-20] MEDS: POLYETHYLENE GLYCOL 3350 17 GM POWD.PACK PO SCH (09:00)
[2022-06-20] MEDS: MAG HYDROX/AL HYDROX/SIMETH 30 ML UDC PO SCH (09:00)
[2022-06-20] MEDS: SENNOSIDES 8.6 MG TABLET PO SCH (09:00)
[2022-06-20] MEDS: DOCUSATE SODIUM 100 MG CAPSULE PO SCH (09:00)
[2022-06-20] MEDS: ACIDOPHILUS/BULGARICUS 1 EACH TAB.CHEW PO SCH (09:00)
[2022-06-20] MEDS: SIMETHICONE 80 MG TAB.CHEW PO SCH ×2 (09:00→17:00)
[2022-06-20] MEDS: MULTIVIT W/MINERALS 1 TAB TABLET PO SCH (09:00)
[2022-06-20] MEDS: ASCORBIC ACID 500 MG TABLET PO SCH (09:00)
[2022-06-20] MEDS: FERROUS SULFATE (325 MG) 325 MG/TAB TABLET PO SCH (09:00)
[2022-06-20] MEDS: PRAMIPEXOLE DI-HCL 0.25 MG TABLET PO SCH ×3 (09:00→17:00)
[2022-06-20] MEDS: CLOPIDOGREL BISULFATE 75 MG TABLET PO SCH (09:00)
--- NOTE | 2022-06-20 09:10 | NUR ---
RN NOTE PER DR NERI SOUSA TO SWITCH 40MEQ PO POTASSIUM TO IV. ORDERS PLACED
[2022-06-20] MEDS: CLOTRIMAZOLE 1% 15 GM TUBE TP SCH ×2 (09:16→17:36)
[2022-06-20] MEDS: PANTOPRAZOLE 40 MG VIAL IV SCH (09:16)
[2022-06-20] MEDS ORDERED: POTASSIUM CL. PREMIX PERIPHER. 50 ML IV SCH (10:00)
[2022-06-20] MEDS ORDERED: POTASSIUM CHLORIDE 10 MEQ/50 ML PREMIXED IVPB FOR PERIPHERAL LINE IV SCH (10:00)
[2022-06-20] MEDS ORDERED: POTASSIUM CHLORIDE 10 MEQ/50 ML PREMIXED IVPB FOR PERIPHERAL LINE IV ONE (10:00)
[2022-06-20] MEDS: POTASSIUM CL. PREMIX PERIPHER. 50 ML IV SCH ×4 (10:18→13:53)
[2022-06-20] MEDS ORDERED: K PHOS NEUTRAL 250 MG TABLET PO ONE (12:00)
[2022-06-20] MEDS ORDERED: PNEUMOCOCCAL 23-VAL P-SAC VAC 0.5 ML VIAL SQ ONE (15:00)
[2022-06-20 16:00] VITALS: BP 147/70
[2022-06-20] MEDS: LEVOFLOXACIN 250 MG /D5W 50 ML 250 MG in PREMIX 1 EA IV SCH (16:17)
--- NOTE | 2022-06-20 16:57 | NUR ---
Dr. Cross tried fr 14 smallest size to r nares unsuccessful w/ resistance,daughter wanted transfer to other hospital per dr. cross he will talk to cm.
--- NOTE | 2022-06-20 16:57 | NUR ---
RN NOTE PER DR. Zuniga CHANGE IV FLUID FROM LR TO D5NS 80MLS HR. ORDER CHANGED
[2022-06-20] MEDS: IV D5/ 0.9% NACL 1,000 ML IV PRN (17:38)
--- NOTE | 2022-06-20 19:25 | NUR ---
RN CLOSING NOTES, PATIENT IN BED ASLEEP, AROUSES TO VERBAL STIMULI, VERBALLY RESPONSIVE, AT 2LPM VIA NC, NO DISTRESS/SOB NOTED WITH OPTIMAL O2 SAT LEVEL, IVF D2NS AT 80MLS/HR INFUSING WELL AND PATENT TOLERATED WELL, DARIAN MIDLINE PATENT AND INTACT, DAUGHTER AT BEDSIDE, ALL SAFETY PRECAUTIONS MAINTAINED, WILL ENDORSE CONTINUITY OF CARE TO ONCOMING NURSE.
[2022-06-20 20:00] VITALS: BP 158/80
[2022-06-20] MEDS: ENOXAPARIN SODIUM 40 MG/0.4 ML DISP.SYRIN SQ SCH (20:53)
[2022-06-20] MEDS: LATANOPROST EYE DROP 0.005% 2.5 ML BOTTLE EACHEYE SCH (21:03)
[2022-06-20] MEDS: ATORVASTATIN 40 MG TABLET PO SCH (21:03)
--- NOTE | 2022-06-20 23:45 | NUR ---
DAUGHTER ASKING FOR SOMETHING TO SLEEP FOR PATIENT, PT NPO AND CANNOT ADMINISTER AMBIEN, INFORMED CARLOS TRAN ENGRAVER APPRENTICE DECORATIVE AND REPLIED WITH ORDER FOR ATIVAN 0.5MG IVP ONCE, ORDER NOTED AND CARRIED OUT.
[2022-06-21] MEDS ORDERED: LORAZEPAM INJ 2 MG/ML VIAL ONE (00:08)
[2022-06-21 04:00] VITALS: BP 159/82
[2022-06-21] MEDS: IV D5/ 0.9% NACL 1,000 ML IV PRN (05:49)
--- NOTE | 2022-06-21 06:31 | NUR ---
RN CLOSING NOTES, PATIENT IN BED ASLEEP, AROUSES TO VERBAL STIMULI, VERBALLY RESPONSIVE, AT 2LPM VIA NC, NO DISTRESS/SOB NOTED WITH OPTIMAL O2 SAT LEVEL, DARIAN MIDLINE PATENT AND INTACT, D5 0.9%, INFUSING WELL AND PATENT TOLERATED WELL, DAUGHTER AT BEDSIDE, OTHERWISE NO SIGNIFICANT CHANGE IN CONDITION DURING THE NIGHT, VITAL SIGNS STABLE, DAUGHTER EXPRESSING THAT SHE WANTS PATIENT TO MOVE TO ANOTHER HOSPITAL, CM INVOLVED, ALL SAFETY PRECAUTIONS MAINTAINED, WILL ENDORSE CONTINUITY OF CARE TO ONCOMING NURSE.
[2022-06-21 06:49] LABS: CALCIUM, SERUM 8.3 mg/dL (8.5-10.1); CHLORIDE 108 mmol/L (98-107); CREATININE 0.6 mg/dL (0.6-1.3); GLUCOSE 112 mg/dL (74-106); POTASSIUM 2.9 mmol/L (3.5-5.1); SODIUM SERUM 144 mmol/L (136-145); UREA NITROGEN, BLOOD 4 mg/dL (7-18)
[2022-06-21 07:09] LABS: CARBON DIOXIDE 32 mmol/L (21-32)
--- NOTE | 2022-06-21 07:30 | NUR ---
RN OPENING NOTE PATIENT IS IN BED, ASLEEP, BUT EASILY AROUSABLE, ALERT ORIENTED X 2.. ON OXYGEN VIA NASAL CANNULA AT 2L/MIN. BREATHING UNLABORED AND NOT IN ANY FORM OF DISTRESS. ON NPO. WITH RIGHT UPPER ARM MIDLINE INFUSING WITH D5NS AR 80 ML/HR. RIGHT FORE ARM SALINE LOCK INTACT AND PATENT. PATIENT IS ACCOMPANIED BY DAUGHTER AT BEDSIDE. BED IS LOCKED IN LOWEST POSITION, 3 SIDE RAILS UP, CALL LIGHT WITHIN REACH. WILL CONTINUE TO MONITOR THROUGHOUT SHIFT.
[2022-06-21] MEDS: ENSURE ENLIVE 237 ML LIQUID (VANILLA) PO SCH ×3 (08:00→17:00)
[2022-06-21] MEDS: DOCUSATE SODIUM 100 MG CAPSULE PO SCH (09:00)
[2022-06-21] MEDS: FERROUS SULFATE (325 MG) 325 MG/TAB TABLET PO SCH (09:00)
[2022-06-21] MEDS: ACIDOPHILUS/BULGARICUS 1 EACH TAB.CHEW PO SCH (09:00)
[2022-06-21] MEDS: CLOPIDOGREL BISULFATE 75 MG TABLET PO SCH (09:00)
[2022-06-21] MEDS: SIMETHICONE 80 MG TAB.CHEW PO SCH ×2 (09:00→17:00)
[2022-06-21] MEDS: PRAMIPEXOLE DI-HCL 0.25 MG TABLET PO SCH ×3 (09:00→17:00)
[2022-06-21] MEDS: POLYETHYLENE GLYCOL 3350 17 GM POWD.PACK PO SCH (09:00)
[2022-06-21] MEDS: ASCORBIC ACID 500 MG TABLET PO SCH (09:00)
[2022-06-21] MEDS: MAG HYDROX/AL HYDROX/SIMETH 30 ML UDC PO SCH (09:00)
[2022-06-21] MEDS: MULTIVIT W/MINERALS 1 TAB TABLET PO SCH (09:00)
[2022-06-21] MEDS: SENNOSIDES 8.6 MG TABLET PO SCH (09:00)
[2022-06-21] MEDS: CLOTRIMAZOLE 1% 15 GM TUBE TP SCH ×2 (09:00→17:27)
[2022-06-21] MEDS: PANTOPRAZOLE 40 MG VIAL IV SCH (09:35)
[2022-06-21] MEDS: POTASSIUM PHOSPHATE MM 7.5 MMOL in IV NS 0.9% 100 ML IV SCH ×2 (09:36→12:58)
[2022-06-21 12:00] VITALS: BP 157/77
--- NOTE | 2022-06-21 12:26 | NUR ---
followup with dr cross regarding NGT per md he ask GI DR. TALAMANTES to place NGT via endoscope and CM working on transfer .[facility]
[2022-06-21] MEDS: POTASSIUM CL. PREMIX PERIPHER. 50 ML IV SCH ×7 (13:08→21:45)
--- NOTE | 2022-06-21 13:48 | NUR ---
faxed to medical record daughter request for released of medical information/record.per medical record they received it.
[2022-06-21] MEDS ORDERED: TPN/PPN PER PHARMACY IV PRN (16:00)
[2022-06-21] MEDS ORDERED: DEXTROSE 50%-WATER 50 ML DISP.SYRIN IV PRN (17:30)
[2022-06-21] MEDS: LEVOFLOXACIN 250 MG /D5W 50 ML 250 MG in PREMIX 1 EA IV SCH (17:59)
[2022-06-21] MEDS ORDERED: TPN BAG #1 IV SCH ×3 (18:00)
[2022-06-21] MEDS: BLOOD SUGAR DIAGNOSTIC 1 EACH STRIP IN SCH (18:29)
--- NOTE | 2022-06-21 19:00 | NUR ---
RN CLOSING NOTE PATIENT REMAINED STABLE THROUGHOUT SHIFT. ON O2 VIA NASAL CANNULA AT 2L/MIN, SATTING AT 98%. BREATHING UNLABORED AND NOT IN ANY FORM OF DISTRESS. POTASSIUM REPLACEMENT STARTED, NOW ON ITS 3RD BAG. PHOSPHORUS REPLACEMENT GIVEN. ACCUCHECKING STARTED PRIOR TO TPN. ALL HOSPITAL SAFETY PRECAUTION IN PLACE. WILL ENDORSE TO CONSTRUCTION CODE ADMINISTRATOR NURSE.
--- NOTE | 2022-06-21 19:15 | NUR ---
RN NOTE RECEIVED PATIENT IN BED, DAUGHTER AT BEDSIDE, AAO X 2, SPEECH IS UNCLEAR, IN NO ACUTE DISTRESS, BREATHING UNLABORED, SATURATION AT 95% ON 2L VIA NC, HR IS 74. IV LINE AT RFA 24G AND DARIAN MIDLINE PATENT AND FLUSHING WELL, NO S/S OF INFECTION OR BLEEDING NOTED, WITH D5NS INFUSING AT 80 ML/HR, AND KCL 10 MEQS AT 50 ML/HR. SKY CATH DRAINING TO A CLEAR, YELLOW OUTPUT. NPO STATUS MAINTAINED. SAFETY MEASURES IN PLACE, BED IS LOCKED AND AT LOWEST POSITION. CALL LIGHT WITHIN REACH OF PATIENT. WILL CONT TO MONITOR AND REASSESS FOR ANY CHANGES.
[2022-06-21 20:00] VITALS: BP 112/73
[2022-06-21] MEDS: ENOXAPARIN SODIUM 40 MG/0.4 ML DISP.SYRIN SQ SCH (21:46)
[2022-06-21] MEDS: LATANOPROST EYE DROP 0.005% 2.5 ML BOTTLE EACHEYE SCH (21:48)
[2022-06-21] MEDS: ATORVASTATIN 40 MG TABLET PO SCH (21:54)
[2022-06-21] MEDS ORDERED: LORAZEPAM INJ 2 MG/ML VIAL IV ONE ×3 (23:00→23:45)
[2022-06-22] VITALS (11 sets, daily range): BP systolic 129–176; BP diastolic 64–79
[2022-06-22] MEDS: BLOOD SUGAR DIAGNOSTIC 1 EACH STRIP IN SCH ×4 (00:36→17:54)
--- NOTE | 2022-06-22 07:30 | NUR ---
MS RN OPENING NOTES RECEIVED PATIENT IN BED, AWAKE. ALERT AND ORIENTED X 2. NO SOB OR CARDIAC DISTRESS NOTED, ON O2 @ 2LM VIA NC AND TOLERATING WELL. NOTED WITH IV ACCESS ON RFA G#24 , DARIAN MIDLINE MIDLINE WITH TPN @50ML/HR. RUNNING NS @75ML/HR. IV ACCESS PATENT AND INTACT. SAFETY PRECAUTIONS MAINTAINED: ED LOCKED AND IN LOWEST POSITION, SIDE RAILS UP X 2. CALL LIGHT IN EASY REACH FOR HELP/ASSISTANCE. KEPT RESTED AND COMFORTABLE. WILL MONITOR ACCORDINGLY.
[2022-06-22] MEDS: ENSURE ENLIVE 237 ML LIQUID (VANILLA) PO SCH ×3 (08:00→16:52)
[2022-06-22] MEDS: ACIDOPHILUS/BULGARICUS 1 EACH TAB.CHEW PO SCH (09:00)
[2022-06-22] MEDS: PANTOPRAZOLE 40 MG VIAL IV SCH ×2 (09:00→10:02)
[2022-06-22] MEDS: PRAMIPEXOLE DI-HCL 0.25 MG TABLET PO SCH ×3 (09:00→16:52)
[2022-06-22] MEDS: MULTIVIT W/MINERALS 1 TAB TABLET PO SCH (09:00)
[2022-06-22] MEDS: DOCUSATE SODIUM 100 MG CAPSULE PO SCH (09:00)
[2022-06-22] MEDS: POLYETHYLENE GLYCOL 3350 17 GM POWD.PACK PO SCH (09:00)
[2022-06-22] MEDS: FERROUS SULFATE (325 MG) 325 MG/TAB TABLET PO SCH (09:00)
[2022-06-22] MEDS: CLOTRIMAZOLE 1% 15 GM TUBE TP SCH ×2 (09:00→17:53)
[2022-06-22] MEDS: ASCORBIC ACID 500 MG TABLET PO SCH (09:00)
[2022-06-22] MEDS: CLOPIDOGREL BISULFATE 75 MG TABLET PO SCH (09:00)
[2022-06-22] MEDS: SENNOSIDES 8.6 MG TABLET PO SCH (09:00)
[2022-06-22] MEDS: MAG HYDROX/AL HYDROX/SIMETH 30 ML UDC PO SCH (09:00)
[2022-06-22] MEDS: SIMETHICONE 80 MG TAB.CHEW PO SCH ×2 (09:00→16:52)
--- NOTE | 2022-06-22 09:00 | NUR ---
rn notes: oral meds not given, patient is NPO.
--- NOTE | 2022-06-22 09:00 | NUR ---
RN NOTES: PER PHARMACY TPN IS NOT COMPATIBLE TO MIDLINE ACCESS, IT SHOULD BE CENTRAL LINE.
[2022-06-22 09:22] LABS: CALCIUM, SERUM 8.4 mg/dL (8.5-10.1); CREATININE 0.6 mg/dL (0.6-1.3); POTASSIUM 3.7 mmol/L (3.5-5.1)
--- NOTE | 2022-06-22 11:34 | NUR ---
RN NOTES: PATIENT RETAINING URINE 1000ML, DR GARNER MADE AWARE AND ORDERED SKY CAT INSERTION NOW. ORDER NOTED AND CARRIED OUT.
--- NOTE | 2022-06-22 12:15 | NUR ---
RN NOTES: PT IN NPO, ORAL INTAKE/MEDS NOT GIVEN.
[2022-06-22] MEDS: IV 10% DEXTROSE 1,000 ML IV PRN ×2 (12:29→21:14)
--- NOTE | 2022-06-22 13:40 | NUR ---
RN NOTES: PATIENT STARTED TO HAVE DESATURATION BETWEEN 88-89%, DR GARNER MADE AWARE AND ORDERED TO HAVE STAT CHEST XRAY, STAT ABG AND PULMO CONSULT (DR OWENS). ALL ORDERS NOTED AND CARRIED OUT, FAMILY IN BEDSIDE AND MADE AWARE.
[2022-06-22] MEDS ORDERED: TPN BAG #2 IV SCH ×3 (14:00)
[2022-06-22 14:13] LABS: ABG BASE EXCESS 4.8 mmol/L; ABG OXYGEN SATURATION 86.8 % (92.0-98.5); ABG PCO2 39.5 mmHg (35.0-45.0); ABG PH 7.478 (7.350-7.450); ABG PO2 50.7 mmHg (75.0-100.0); AaDO2 622.8 mmHg; COHb 0.1 % (0.5-1.5); MetHb 0.3 % (0.0-1.5); O2Hb 86.5 % (94.0-97.0); SITE, ABG Right Radial
[2022-06-22] MEDS ORDERED: CLINDAMYCIN IV RTU IN D5W 600 MG/50 ML PIGGYBACK IV SCH (14:30)
[2022-06-22] MEDS ORDERED: CLINDAMYCIN 600 MG in IV D5W 50 ML IV SCH (15:00)
--- NOTE | 2022-06-22 15:15 | NUR ---
RN NOTES: RECEIVED A CALL FROM DR OWENS TO TRANSFER PATIENT TO ICU BECAUSE LEFT LUNG HAS PLEURAL EFFUSION AND PATIENT FOR POSSIBLE INTUBATION. FAMILY MADE AWARE. INITIALLY FAMILY DID NOT WANT TO TRANSFER PT TO ICU THEY PREFERRED PT TO BE TRANSFERRED TO OTHER HOSPITAL.
--- NOTE | 2022-06-22 15:22 | NUR ---
TRANSFERRED TO ICU: PATIENT TRANSFERRED TO ICU VIA BED. GAVE REPORT TO ADAM FLOWERS. PATIENT ALERT ON O2 INHALATION @15LMP VIA NON REBREATHER MASK. MEDS FROM CASSETTE AND PATIENT'S CHART GIVEN TO ADAM FLOWERS. ON NPO, HELD ALL IV FLUIDS FOR NOW PER MD ORDER. BELONGINGS CARRIED WITH THE DAUGHTERS.
[2022-06-22] MEDS: CLINDAMYCIN 900 MG in IV D5W 50 ML IV SCH ×2 (15:26→21:14)
[2022-06-22] MEDS: LEVOFLOXACIN 250 MG /D5W 50 ML 250 MG in PREMIX 1 EA IV SCH (16:10)
[2022-06-22] MEDS: ALBUTEROL HALF STRENGTH 1.25 MG/3 ML VIAL.NEB NEB SCH ×4 (16:11→23:34)
[2022-06-22] MEDS: IPRATROPIUM NEB FS 0.5 MG/2.5 ML AMPUL.NEB NEB SCH ×3 (16:20→23:34)
[2022-06-22] MEDS: ACETYLCYSTEINE 10% SOLN 400 MG/4 ML VIAL NEB SCH ×2 (16:20→23:34)
[2022-06-22] MEDS: INSULIN REGULAR, HUMAN 100 UNIT/ML 3 ML VIAL SQ PRN (18:08)
--- NOTE | 2022-06-22 19:26 | NUR ---
RN CLOSING NOTES PT IS IN BED WITH DAUGHTERS AT BEDSIDE, A/O X 2, ON HI FLOW NC, AND 15L NRB. IV ACCESS ON DARIAN MIDLINE. NO FLUIDS RUNNING. PT ON TELE MONITORING SHOWING SR. ALL SAFETY MEASURES IN PLACE, FALL PRECAUTIONS IN PLACE, ENDORSED CARE TO FORK ASSEMBLER RN.
--- NOTE | 2022-06-22 19:30 | NUR ---
RN OPENING NOTE PT RECEIVED ASLEEP IN BED, RESPONSIVE TO STIMULI. SATTING AT 92% ON non-rebreather 15l high flow. PATIENT VOIDING VIA SKY CATHETER PATENT AND DRAINING BELOW THE BLADDER. IV DARIAN MIDLINE PATENT AND INTACT. DIET CONT ON NPO POSSIBLE PEG OR TPN. ALL SAFETY FALL PRECAUTIONS IN PLACE BED LOCK ON, BED IN LOWEST POSITION, BED ALARM ON, SIDE RAILS UP, CALL LIGHT WITHIN REACH. DAUGHTER AT BEDSIDE. WILL CONTINUE TO MONITOR.
[2022-06-22] MEDS: hydrALAZINE HCL IV 20 MG VIAL IV PRN (20:38)
[2022-06-22] MEDS: ENOXAPARIN SODIUM 40 MG/0.4 ML DISP.SYRIN SQ SCH (21:12)
[2022-06-22] MEDS: MORPHINE SULFATE INJ 2 MG/ML DISP.SYRIN IV PRN (21:13)
[2022-06-22] MEDS: LATANOPROST EYE DROP 0.005% 2.5 ML BOTTLE EACHEYE SCH (21:14)
[2022-06-22] MEDS: ATORVASTATIN 40 MG TABLET PO SCH (21:28)
[2022-06-23] VITALS (25 sets, daily range): BP systolic 101–168; BP diastolic 51–97
[2022-06-23] MEDS: hydrALAZINE HCL IV 20 MG VIAL IV PRN ×2 (01:25→21:23)
[2022-06-23] MEDS: ALBUTEROL HALF STRENGTH 1.25 MG/3 ML VIAL.NEB NEB SCH ×6 (03:25→23:17)
[2022-06-23] MEDS: IPRATROPIUM NEB FS 0.5 MG/2.5 ML AMPUL.NEB NEB SCH ×6 (03:25→23:17)
[2022-06-23] MEDS: BLOOD SUGAR DIAGNOSTIC 1 EACH STRIP IN SCH ×4 (06:05→17:33)
--- NOTE | 2022-06-23 07:02 | NUR ---
RN CLOSING NOTE, AL CARE ENDORSED TO DAY SHIFT NURSE.
[2022-06-23] MEDS: ENSURE ENLIVE 237 ML LIQUID (VANILLA) PO SCH ×3 (07:14→16:10)
[2022-06-23] MEDS: ACETYLCYSTEINE 10% SOLN 400 MG/4 ML VIAL NEB SCH ×3 (07:49→23:17)
[2022-06-23] MEDS: CLINDAMYCIN 900 MG in IV D5W 50 ML IV SCH ×2 (08:01→21:24)
[2022-06-23] MEDS: PANTOPRAZOLE 40 MG VIAL IV SCH (08:01)
[2022-06-23] MEDS: CLOPIDOGREL BISULFATE 75 MG TABLET PO SCH (08:02)
[2022-06-23] MEDS: POLYETHYLENE GLYCOL 3350 17 GM POWD.PACK PO SCH (08:02)
[2022-06-23] MEDS: SIMETHICONE 80 MG TAB.CHEW PO SCH ×2 (08:02→16:10)
[2022-06-23] MEDS: ACIDOPHILUS/BULGARICUS 1 EACH TAB.CHEW PO SCH (08:02)
[2022-06-23] MEDS: DOCUSATE SODIUM 100 MG CAPSULE PO SCH (08:02)
[2022-06-23] MEDS: FERROUS SULFATE (325 MG) 325 MG/TAB TABLET PO SCH (08:02)
[2022-06-23] MEDS: MAG HYDROX/AL HYDROX/SIMETH 30 ML UDC PO SCH (08:02)
[2022-06-23] MEDS: SENNOSIDES 8.6 MG TABLET PO SCH (08:02)
[2022-06-23] MEDS: PRAMIPEXOLE DI-HCL 0.25 MG TABLET PO SCH ×3 (08:02→16:10)
[2022-06-23] MEDS: MULTIVIT W/MINERALS 1 TAB TABLET PO SCH (08:03)
[2022-06-23] MEDS: ASCORBIC ACID 500 MG TABLET PO SCH (08:03)
[2022-06-23] MEDS: CLOTRIMAZOLE 1% 15 GM TUBE TP SCH ×2 (08:03→16:11)
[2022-06-23 09:31] LABS: BASOPHILS % (AUTO) 0.3 % (0.0-2.0); EOSINOPHILS % (AUTO) 0.2 % (0.0-6.0); HEMATOCRIT 29 % (39-51); HEMOGLOBIN 9.7 g/dL (13.5-17.5); LYMPHOCYTES # (AUTO) 1.2 K/uL (0.8-4.8); LYMPHOCYTES % (AUTO) 15.3 % (20.0-44.0); MEAN CORPUSCULAR HGB CONC 33 g/dl (31.0-36.0); MEAN CORPUSCULAR VOLUME 85 fL (80-96); MONOCYTES # (AUTO) 0.6 K/uL (0.1-1.30); MONOCYTES % (AUTO) 7.9 % (2.0-12.0); NEUTROPHILS # (AUTO) 5.8 K/uL (1.8-8.9); NEUTROPHILS % (AUTO) 76.3 % (43.0-81.0); PLATELET COUNT (AUTO) 223 K/uL (150-450); WHITE BLOOD COUNT (AUTO) 7.6 K/uL (4.3-11.0)
[2022-06-23 09:52] LABS: CALCIUM, SERUM 8.1 mg/dL (8.5-10.1); CREATININE 0.7 mg/dL (0.6-1.3); POTASSIUM 3.1 mmol/L (3.5-5.1)
[2022-06-23] MEDS: POTASSIUM CL. PREMIX PERIPHER. 50 ML IV SCH ×4 (10:58→14:37)
[2022-06-23] MEDS ORDERED: DEXTROSE 5% IV ONE ×2 (12:00)
[2022-06-23] MEDS ORDERED: AMINO ACIDS IV ONE ×2 (12:00)
--- NOTE | 2022-06-23 13:49 | NUR ---
PPN STARTED, COVID TEST ADMINISTERED.
--- NOTE | 2022-06-23 15:45 | NUR ---
PT COVID TEST RESULT SHOWS NEGATIVE.
--- NOTE | 2022-06-23 15:49 | NUR ---
RT received pt on HFNC 40 L 100%. Order given by MD. Driver to titrate FIO2 as tolerated. Pt currently on 40L 70%. Tolerating well. Will continue to monitor
[2022-06-23] MEDS: INSULIN REGULAR, HUMAN 100 UNIT/ML 3 ML VIAL SQ PRN (17:52)
--- NOTE | 2022-06-23 18:31 | NUR ---
Transportation canceled. per CM, Doctor at [place] deemed pt not medically stable.
--- NOTE | 2022-06-23 18:32 | NUR ---
RN CLOSING NOTE PT IS RESTING IN BED WITH DAUGHTER AT BEDSIDE, A/O X 2-3. PT ON HI FLOW NC, TOLERATING CURRENT SETTINGS AT 95%. TELE READS SR. SKY DRAINING AND PATENT. IV ACCESS NOTED AT R FA AND R UA MIDLINE RUNNING PPN AT 100 MLS/HR. ALL SAFETY MEASURES IN PLACE, FALL AND ASPIRATION PRECAUTIONS IN PLACE, WILL ENDORSE TO CRAYON GRADER NURSE FOR AYLA.
--- NOTE | 2022-06-23 19:30 | NUR ---
RN OPENING NOTE PT RECEIVED ASLEEP IN BED, RESPONSIVE TO STIMULI. SATTING AT 96% ON HIGH FLOW. PATIENT VOIDING VIA SKY CATHETER PATENT AND DRAINING BELOW THE BLADDER. IV DARIAN MIDLINE PATENT AND INTACT. DIET TPN.. ALL SAFETY FALL PRECAUTIONS IN PLACE BED LOCK ON, BED IN LOWEST POSITION, BED ALARM ON, SIDE RAILS UP, CALL LIGHT WITHIN REACH. DAUGHTER AT BEDSIDE. WILL CONTINUE TO MONITOR.
[2022-06-23] MEDS: MORPHINE SULFATE INJ 2 MG/ML DISP.SYRIN IV PRN (21:22)
[2022-06-23] MEDS: ENOXAPARIN SODIUM 40 MG/0.4 ML DISP.SYRIN SQ SCH (21:24)
[2022-06-23] MEDS: ATORVASTATIN 40 MG TABLET PO SCH (22:00)
[2022-06-23] MEDS: LATANOPROST EYE DROP 0.005% 2.5 ML BOTTLE EACHEYE SCH (22:00)
--- NOTE | 2022-06-23 22:00 | NUR ---
RN NOTE PATIENT'S EYE DROPS WERE NOT IN THE CASSETTE, PHARMACY IS CLOSE. SO EYE DROPS WERE NOT GIVEN.
[2022-06-24] VITALS (20 sets, daily range): BP systolic 102–171; BP diastolic 49–101
[2022-06-24] MEDS: BLOOD SUGAR DIAGNOSTIC 1 EACH STRIP IN SCH ×3 (00:52→12:14)
[2022-06-24] MEDS: IPRATROPIUM NEB FS 0.5 MG/2.5 ML AMPUL.NEB NEB SCH ×4 (03:29→14:43)
[2022-06-24] MEDS: ALBUTEROL HALF STRENGTH 1.25 MG/3 ML VIAL.NEB NEB SCH ×4 (03:30→14:44)
[2022-06-24 04:24] LABS: BASOPHILS % (AUTO) 0.3 % (0.0-2.0); EOSINOPHILS % (AUTO) 0.4 % (0.0-6.0); HEMATOCRIT 30 % (39-51); LYMPHOCYTES # (AUTO) 1.8 K/uL (0.8-4.8); LYMPHOCYTES % (AUTO) 22.9 % (20.0-44.0); MEAN CORPUSCULAR HGB CONC 33 g/dl (31.0-36.0); MEAN CORPUSCULAR VOLUME 85 fL (80-96); MONOCYTES # (AUTO) 0.5 K/uL (0.1-1.30); MONOCYTES % (AUTO) 6.7 % (2.0-12.0); NEUTROPHILS # (AUTO) 5.5 K/uL (1.8-8.9); NEUTROPHILS % (AUTO) 69.7 % (43.0-81.0); PLATELET COUNT (AUTO) 262 K/uL (150-450); RED BLOOD CELL COUNT(AUTO) 3.53 MIL/uL (4.5-6.0); WHITE BLOOD COUNT (AUTO) 7.9 K/uL (4.3-11.0)
[2022-06-24 04:35] LABS: CALCIUM, SERUM 8.2 mg/dL (8.5-10.1); CARBON DIOXIDE 30 mmol/L (21-32); CHLORIDE 104 mmol/L (98-107); CHOLESTEROL 113 mg/dL (<200); CREATININE 0.7 mg/dL (0.6-1.3); GLUCOSE 95 mg/dL (74-106); HDL CHOLESTEROL 34 mg/dL (40-60); LDL 62 mg/dL (0-99); MAGNESIUM 1.9 mg/dL (1.8-2.4); PHOSPHORUS 2.2 mg/dL (2.5-4.9); POTASSIUM 3.9 mmol/L (3.5-5.1); SODIUM SERUM 139 mmol/L (136-145); TRIGLYCERIDES 97 mg/dL (30-150); UREA NITROGEN, BLOOD 16 mg/dL (7-18)
--- NOTE | 2022-06-24 07:17 | NUR ---
RN CLOSING NOTE PT ASLEEP IN BED, RESPONSIVE TO STIMULI. SATTING AT 100% ON HIGH FLOW. PATIENT VOIDING VIA SKY CATHETER PATENT AND DRAINING BELOW THE BLADDER. IV DARIAN MIDLINE PATENT AND INTACT. DIET TPN/PPN. ALL SAFETY FALL PRECAUTIONS IN PLACE BED LOCK ON, BED IN LOWEST POSITION, BED ALARM ON, SIDE RAILS UP, CALL LIGHT WITHIN REACH. ALL CARE ENDORSED TO DAY SHIFT NURSE. PLAN TO TITRATE 02 FOR TRANSFER TO [facility].
[2022-06-24] MEDS: ACETYLCYSTEINE 10% SOLN 400 MG/4 ML VIAL NEB SCH ×2 (07:43→14:43)
[2022-06-24] MEDS ORDERED: DEXTROSE 5% IV ONE ×2 (08:00)
[2022-06-24] MEDS ORDERED: AMINO ACIDS IV ONE ×2 (08:00)
[2022-06-24] MEDS: ENSURE ENLIVE 237 ML LIQUID (VANILLA) PO SCH ×2 (08:00→12:00)
[2022-06-24] MEDS: ACIDOPHILUS/BULGARICUS 1 EACH TAB.CHEW PO SCH (08:51)
[2022-06-24] MEDS: DOCUSATE SODIUM 100 MG CAPSULE PO SCH (08:51)
[2022-06-24] MEDS: MAG HYDROX/AL HYDROX/SIMETH 30 ML UDC PO SCH (08:51)
[2022-06-24] MEDS: FERROUS SULFATE (325 MG) 325 MG/TAB TABLET PO SCH (08:51)
[2022-06-24] MEDS: SIMETHICONE 80 MG TAB.CHEW PO SCH (08:52)
[2022-06-24] MEDS: POLYETHYLENE GLYCOL 3350 17 GM POWD.PACK PO SCH (08:52)
[2022-06-24] MEDS: CLOPIDOGREL BISULFATE 75 MG TABLET PO SCH (08:52)
[2022-06-24] MEDS: PRAMIPEXOLE DI-HCL 0.25 MG TABLET PO SCH ×2 (08:52→12:07)
[2022-06-24] MEDS: ASCORBIC ACID 500 MG TABLET PO SCH (08:53)
[2022-06-24] MEDS: SENNOSIDES 8.6 MG TABLET PO SCH (08:53)
[2022-06-24] MEDS: MULTIVIT W/MINERALS 1 TAB TABLET PO SCH (08:53)
[2022-06-24] MEDS: CLINDAMYCIN 900 MG in IV D5W 50 ML IV SCH (09:39)
[2022-06-24] MEDS: PANTOPRAZOLE 40 MG VIAL IV SCH (09:39)
[2022-06-24] MEDS: CLOTRIMAZOLE 1% 15 GM TUBE TP SCH (10:52)
[2022-06-24] MEDS: MORPHINE SULFATE INJ 2 MG/ML DISP.SYRIN IV PRN (11:01)
[2022-06-24] MEDS: hydrALAZINE HCL IV 20 MG VIAL IV PRN (13:18)
[2022-06-24] MEDS ORDERED: Sodium Phosphate 15 MMOL in IV NS 0.9% 245 ML IV SCH (14:00)
[2022-06-24] MEDS ORDERED: LEVOFLOXACIN 500 MG /D5W 100ML 500 MG in PREMIX 1 EA IV SCH (14:30)
--- NOTE | 2022-06-24 14:30 | NUR ---
SPOKE WITH CASE MORENA REGARDING HOSPITAL TRANSFER TO [facility]; ETA 1530PM VIA [facility]; SABINA-DAUGHTER AT BEDSIDE AWARE. CHARGE NURSE AWARE.
[2022-06-24] MEDS ORDERED: LEVOFLOXACIN 750 MG /D5W 150ML 750 MG in PREMIX 1 EA IV SCH (15:00)
--- NOTE | 2022-06-24 15:17 | NUR ---
REPORT GIVEN TO LORI OF [facility]
--- NOTE | 2022-06-24 15:45 | NUR ---
[facility] ARRIVED FOR RESIDENTIAL SERVICE TECHNICIAN
--- NOTE | 2022-06-24 16:05 | NUR ---
PATIENT STABLE AT THIS TIME DURING TRANSFER VIA [facility]; DISCHARGE FORMS GIVEN UPON DISCHARGE; DISCHARGED PT. PER ORDER/PROTOCOL. SABINA-DAUGHTER PRESENT. CHARGE NURSE-DREW AWARE OF THE TRANSFER.
[2022-06-24] MEDS ORDERED: FAT EMULSION 20% 500 ML in PREMIX 1 EA IV SCH (18:00)
[2022-06-25] MEDS ORDERED: AMINO ACIDS IV ONE ×2 (04:00)
[2022-06-25] MEDS ORDERED: DEXTROSE 5% IV ONE ×2 (04:00)
== END 2022-06-24 16:28 | disposition short-term general hospital (02) | DRG 871 ==
LOC: ER 14:45 → TELE1 22:08 → MEDSG1 06-16 07:50 → TELE1 06-16 16:52 → MEDSG1 06-17 20:20 → ICU 06-22 14:42
PROVIDERS: ADMIT Student in an Organized Health Care Education/Training Program; ATTEND Internal Medicine
PROC: 05H933Z Insertion of Infusion Device into Right Brachial Vein, Percutaneous Approach (ICD-10-PCS; principal; 2022-06-18)
DX: A41.9 Sepsis, unspecified organism (principal); G93.41 Metabolic encephalopathy; J96.01 Acute respiratory failure with hypoxia; J69.0 Pneumonitis due to inhalation of food and vomit; E44.0 Moderate protein-calorie malnutrition; E87.3 Alkalosis; E87.0 Hyperosmolality and hypernatremia; N39.0 Urinary tract infection, site not specified; J98.11 Atelectasis; T17.990A Other foreign object in respiratory tract, part unspecified in causing asphyxiation, initial encounter; Z66 Do not resuscitate; I69.320 Aphasia following cerebral infarction; R13.10 Dysphagia, unspecified; Z88.5 Allergy status to narcotic agent; Z88.1 Allergy status to other antibiotic agents; Z88.0 Allergy status to penicillin; Z88.2 Allergy status to sulfonamides; Z88.8 Allergy status to other drugs, medicaments and biological substances; Z79.02 Long term (current) use of antithrombotics/antiplatelets; Z79.899 Other long term (current) drug therapy; E86.0 Dehydration; R79.89 Other specified abnormal findings of blood chemistry; Z74.01 Bed confinement status; H40.9 Unspecified glaucoma; E78.5 Hyperlipidemia, unspecified; E88.09 Other disorders of plasma-protein metabolism, not elsewhere classified; E87.6 Hypokalemia; D63.8 Anemia in other chronic diseases classified elsewhere; K81.9 Cholecystitis, unspecified; K52.9 Noninfective gastroenteritis and colitis, unspecified; I71.4 Abdominal aortic aneurysm, without rupture; R62.7 Adult failure to thrive; X58.XXXA Exposure to other specified factors, initial encounter; Z88.9 Allergy status to unspecified drugs, medicaments and biological substances; N28.9 Disorder of kidney and ureter, unspecified; K82.8 Other specified diseases of gallbladder
CPT/HCPCS: 36415; 36600; 70450-TC; 71045-TC; 76700-TC; 76770-TC; 80048-TC; 80061-TC; 80076-TC; 80202-TC; 81001; 82040-TC; 82803-TC; 82962-TC; 83605-TC; 83735-TC; 84100-TC; 84443-TC; 84484-TC; 85025-TC; 85730-TC; 87040-TC; 87081-TC; 87086-TC; 90732; 92526; 92611-TC; 93307-TC; 93880-TC; 94760-TC; 94799-TC; A4216; A9563; C9113; C9803; G0378; J0360; J1650; J1815; J1885; J1956; J2060; J2270; J2405; J3370; J3480; J3490; J7030; J7042; J7050; J7060; J7120